=== PATIENT | male | born 1990 ===

== ENCOUNTER 2020-10-16 10:45 | Outpatient (CLI) | payer OTHER | END 2020-10-16 10:46 | disposition short-term general hospital (02) | LOC: EMS 10:45 | PROVIDERS: ATTEND Surgery | DX: S49.92XA Unspecified injury of left shoulder and upper arm, initial encounter (principal); W17.89XA Other fall from one level to another, initial encounter; Y92.89 Other specified places as the place of occurrence of the external cause; Y99.0 Civilian activity done for income or pay | CPT/HCPCS: A0425; A0427 ==